=== PATIENT | female | born 1995 | race Caucasian/White ===

== ENCOUNTER → 2017-09-04 | Outpatient (CLI) | payer SELFPAY ==
[~2017-09-04] MED LIST: BENZ100C4 PO; INSU100C14 SQ; INSU100V24 SQ; LANI SUBQ
== END ==
LOC: LAB 12:56
PROVIDERS: ATTEND Nurse Practitioner Family
DX: E10.65 Type 1 diabetes mellitus with hyperglycemia (principal); I10 Essential (primary) hypertension
CPT/HCPCS: 36415; 82040; 82247; 82310; 82374; 82435; 82565; 82947; 84075; 84132; 84155; 84295; 84450; 84460; 84520; 85027

== ENCOUNTER 2017-09-16 09:11 | Emergency (ER) | payer SELFPAY ==
[~2017-09-16] VITALS: Ht 160 cm; Wt 48.2 kg
--- NOTE | 2017-09-16 09:14 | ER Report ---
History and Physical Time Seen By MD: 09:13 HPI/ROS 22 y/o female with known DM1 was called by her PCM to come to the ED becasue of abnormal labs that were obtained yesterday. The patient states that she did not want to come to the ED, because she otherwise feels well. Says she only came to the ED, b/c the police came to her home for a welfare check. She sais that prior to getting her labs done yesterday, she ate a very big lunch. Again, she otherwise has no complaints, and states that she has tried to be more compliant with her DM. Remainder of the 14 system rev: Yes Allergies: Coded Allergies: amoxicillin (Verified Allergy, Severe, 06/09/17) Home Meds Reported Medications Insulin Lispro (HUMALOG) 100 Unit/1 Ml Vial, 100 UNIT SQ PRN, VIAL 08/05/17 Insulin Glargine (LANTUS) 100 Unit/Ml Soln, 100 UNIT SUBQ PRN, ML 08/05/17 Reviewed Nurses Notes: Yes Old Medical Records Reviewed: Yes Smoking Status: Never Smoker Hx Substance Use Disorder: No Hx Alcohol Use: No Constitutional Vital Sign - Last 24 Hours 09/16/17 09:19 Temp 97.7 Pulse 86 Resp 20 B/P (MAP) 97/73 Pulse Ox 98 O2 Delivery Room Air Physical Exam General Appearance: The patient is alert, has no immediate need for airway protection and no current signs of toxicity. Eyes: PERRL, EoMI Respiratory: Chest is non tender, lungs are clear to auscultation. Cardiac: regular rate and rhythm Gastrointestinal: Abdomen is soft and non tender, no masses, bowel sounds normal. Neck: Neck is supple and non tender. Extremities have full range of motion and are non tender. Skin: No rashes or lesions. DIFFERENTIAL DIAGNOSIS: After history and physical exam differential diagnosis was considered for DKA, infection, hyperglycemia Medical Decision Making Data Points Result Diagram: 09/16/17 0932 09/16/17 0932 Laboratory Hematology Test 09/16/17 09:32 Red Blood Count 4.63 M/uL (4.17-5.56) Mean Corpuscular Volume 89.3 fL (80.0-96.0) Mean Corpuscular Hemoglobin 29.3 pg (26.0-33.0) Mean Corpuscular Hemoglobin Concent 32.8 g/dL (32.0-36.0) Red Cell Distribution Width 15.7 % (11.5-14.5) Mean Platelet Volume 8.4 fL (7.2-11.1) Neutrophils (%) (Auto) 52.4 % (39.4-72.5) Lymphocytes (%) (Auto) 33.0 % (17.6-49.6) Monocytes (%) (Auto) 6.3 % (4.1-12.4) Eosinophils (%) (Auto) 7.0 % (0.4-6.7) Basophils (%) (Auto) 1.3 % (0.3-1.4) Nucleated RBC Relative Count (auto) 0.0 /100WBC Neutrophils # (Auto) 4.2 K/uL (2.0-7.4) Lymphocytes # (Auto) 2.6 K/uL (1.3-3.6) Monocytes # (Auto) 0.5 K/uL (0.3-1.0) Eosinophils # (Auto) 0.6 K/uL (0.0-0.5) Basophils # (Auto) 0.1 K/uL (0.0-0.1) Nucleated RBC Absolute Count (auto) 0.00 K/uL Blood Gas Patient Temperature Unknown DEGREES Venous Blood pH 7.24 (7.31-7.41) Venous Blood Partial Pressure CO2 51 mmHg Venous Blood Partial Pressure O2 < 35 mmHg Venous Blood HCO3 22 mmol/L Venous Blood Oxygen Saturation 41 % Venous Blood Base Excess -6 mmol/L Oxygen Liters/Minute Unknown Sodium Level 138 mmol/L (137-145) Potassium Level 4.2 mmol/L (3.5-5.0) Chloride Level 100 mmol/L (98-107) Carbon Dioxide Level 23 mmol/L (22-31) Blood Urea Nitrogen 46 mg/dl (7-18) Creatinine 3.70 mg/dl (0.52-1.04) Glomerular Filtration Rate Calc 15.2 Random Glucose 211 mg/dl (75-110) Osmolality 298 mOSM/K (275-295) Calcium Level 10.4 mg/dl (8.4-10.2) Total Bilirubin 0.6 mg/dl (0.2-1.3) Aspartate Amino Transf (AST/SGOT) 20 U/L (0-35) Alanine Aminotransferase (ALT/SGPT) 19 U/L (0-56) Alkaline Phosphatase 131 U/L (0-126) Total Protein 8.5 gm/dl (6.3-8.2) Albumin 4.5 g/dl (3.5-5.0) Human Chorionic Gonadotropin, Qual Negative (NEGATIVE) Acetone, Qualitative Negative Chemistry Test 09/16/17 09:32 White Blood Count 8.0 k/uL (4.5-11.0) Red Blood Count 4.63 M/uL (4.17-5.56) Hemoglobin 13.6 g/dL (12.0-16.0) Hematocrit 41.3 % (34.0-47.0) Mean Corpuscular Volume 89.3 fL (80.0-96.0) Mean Corpuscular Hemoglobin 29.3 pg (26.0-33.0) Mean Corpuscular Hemoglobin Concent 32.8 g/dL (32.0-36.0) Red Cell Distribution Width 15.7 % (11.5-14.5) Platelet Count 474 K/uL (150-450) Mean Platelet Volume 8.4 fL (7.2-11.1) Neutrophils (%) (Auto) 52.4 % (39.4-72.5) Lymphocytes (%) (Auto) 33.0 % (17.6-49.6) Monocytes (%) (Auto) 6.3 % (4.1-12.4) Eosinophils (%) (Auto) 7.0 % (0.4-6.7) Basophils (%) (Auto) 1.3 % (0.3-1.4) Nucleated RBC Relative Count (auto) 0.0 /100WBC Neutrophils # (Auto) 4.2 K/uL (2.0-7.4) Lymphocytes # (Auto) 2.6 K/uL (1.3-3.6) Monocytes # (Auto) 0.5 K/uL (0.3-1.0) Eosinophils # (Auto) 0.6 K/uL (0.0-0.5) Basophils # (Auto) 0.1 K/uL (0.0-0.1) Nucleated RBC Absolute Count (auto) 0.00 K/uL Blood Gas Patient Temperature Unknown DEGREES Venous Blood pH 7.24 (7.31-7.41) Venous Blood Partial Pressure CO2 51 mmHg Venous Blood Partial Pressure O2 < 35 mmHg Venous Blood HCO3 22 mmol/L Venous Blood Oxygen Saturation 41 % Venous Blood Base Excess -6 mmol/L Oxygen Liters/Minute Unknown Glomerular Filtration Rate Calc 15.2 Osmolality 298 mOSM/K (275-295) Calcium Level 10.4 mg/dl (8.4-10.2) Total Bilirubin 0.6 mg/dl (0.2-1.3) Aspartate Amino Transf (AST/SGOT) 20 U/L (0-35) Alanine Aminotransferase (ALT/SGPT) 19 U/L (0-56) Alkaline Phosphatase 131 U/L (0-126) Total Protein 8.5 gm/dl (6.3-8.2) Albumin 4.5 g/dl (3.5-5.0) Human Chorionic Gonadotropin, Qual Negative (NEGATIVE) Acetone, Qualitative Negative Toxicology Test 09/16/17 09:32 Acetone, Qualitative Negative ED Course/Re-evaluation ED Course This patient is a 22-year-old female with diabetes type I since the age of 1 who was sent to the emergency department by her primary care physician and the police via a welfare check due to abnormal labs that were drawn yesterday. The patient otherwise has no complaints, and states that she is trying to be more compliant with her diabetes regimen. Today her labs were relatively normal with a glucose of 211, normal sodium, bicarbonate of 23, and an anion gap of 15. She received a liter of normal saline to help with her hyperglycemia. She has no evidence of infection. She is not in DKA. I counseled her at length about being more compliant with her diabetes so that she does not have to come back to the emergency department. She voices understanding, and says that she is making an effort to be more compliant. She will follow-up with her primary care doctor, Dr. Miller. Decision to Disposition Date: Sep 16, 2017 Decision to Disposition Time: 10:32 Depart Departure Latest Vital Signs Vital Signs Date Time Temp Pulse Resp B/P (MAP) Pulse Ox O2 Delivery O2 Flow Rate FiO2 09/16/17 09:19 97.7 86 20 97/73 98 Room Air Impression: Primary Impression: Hyperglycemia due to type 1 diabetes mellitus Condition: Improved Disposition: HOME OR SELF-CARE Patient Instructions: Diabetic Hyperglycemia (ED) IRAM RAGLAND MD Sep 16, 2017 09:14
[2017-09-16 09:19] VITALS: BP 97/73
[2017-09-16] MEDS ORDERED: NS(*) 0.9% 1000 ML BAG 1,000 ML IV ONE (09:20)
[2017-09-16 09:41] LABS: PLATELET COUNT, AUTOMATED 474 K/uL (150-450)
== END 2017-09-16 10:53 | disposition home or self-care (01) ==
LOC: ER 09:11
DX: E10.65 Type 1 diabetes mellitus with hyperglycemia (principal)
CPT/HCPCS: 82009; 82803; 83930; 84703; 85025; 96360; 99284; J7030; 82040; 82247; 82310; 82374; 82435; 82565; 82947; 84075; 84132; 84155; 84295; 84450; 84460; 84520

== ENCOUNTER → 2017-09-29 | Outpatient (CLI) | payer SELFPAY | LOC: AMB 15:29 | PROVIDERS: ATTEND Nurse Practitioner | DX: E10.649 Type 1 diabetes mellitus with hypoglycemia without coma (principal) | CPT/HCPCS: A0998 ==